=== PATIENT | male | born 1980 | race American Indian/Alaskan Native ===

== ENCOUNTER 2016-10-30 08:41 | Inpatient (IN) | payer OTHER ==
[2016-10-30] MEDS ORDERED: ATROVENT IH ONE (08:56)
[2016-10-30] MEDS ORDERED: XOPENEX IH ONE (08:56)
--- NOTE | 2016-10-30 09:10 | XRay Report ---
CHEST ONE VIEW INDICATION: Difficulty breathing. COMPARISON: 03/23/2016. FINDINGS: Portable, single, frontal chest radiograph demonstrates normal cardiomediastinal silhouette. Clear, well-expanded lungs. Unremarkable bones. Extrinsic EKG leads. CONCLUSION: No acute disease in the chest. Thank you for the opportunity to participate in this patient's care.
[2016-10-30 09:19] LABS: Basophils % (Auto) 0.8 % (0.0-1.8); Eosinophils % (Auto) 6.2 % (0.0-4.3); Hematocrit 40.8 % (35.5-45.6); Hemoglobin 13.9 gm/dl (11.8-15.2); Mean Corpuscular HGB Conc 34 % (32-34); Mean Corpuscular Hemoglobin 31 pg (28-32); Mean Corpuscular Volume 91 fl (84-94); Platelet Count 267 K/mm3 (140-440); Red Blood Count 4.47 M/mm3 (3.65-5.03); Red Cell Distribution Width 13.1 % (13.2-15.2); White Blood Count 6.9 K/mm3 (4.5-11.0)
[2016-10-30 09:37] LABS: Anion Gap 18 mmol/L; Blood Urea Nitrogen 16 mg/dL (9-20); Calcium 8.2 mg/dL (8.4-10.2); Carbon Dioxide 22 mmol/L (22-30); Chloride 102.5 mmol/L (98-107); Glucose 181 mg/dL (75-100); Potassium 3.8 mmol/L (3.6-5.0); Sodium 139 mmol/L (137-145)
--- NOTE | 2016-10-30 09:51 | Emergency Department Report ---
ED Shortness of Breath HPI - General Chief Complaint: Dyspnea/Respdistress Stated Complaint: MARCUS Time Seen by Provider: 10/30/16 08:55 Source: patient, EMS Mode of arrival: Stretcher Limitations: Other - History of Present Illness Initial Comments: 36-year-old male with a past medical history of asthma presents to the hospital complaints of shortness of breath. Patient's been short of breath asthma with cough productive of clear sputum. Patient complains of chest tightness associated with asthma. Denies nausea, vomiting, diaphoresis, or fever. History of intubation times one year ago. He is not currently on any oral steroids. Prior to arrival patient sat was 87% on room air. Patient is treated with Solu-Medrol 125 mg, magnesium 2 g, and epi 0.3 subcutaneous and CPAP support. Patient reports some improvement in his symptoms with treatment. Patient also states one week ago while at work a piece of wood fell on his left arm causing a puncture wound. Patient is unsure if he has a retained splinter. He now has purulent drainage from the site and it is hard to touch. - Related Data Previous Rx's Medication Instructions Recorded Last Taken Type Albuterol Sulfate [Ventolin HFA] 2 puff IH Q4-6H PRN #1 hfa.aer.ad 03/23/16 Unknown Rx predniSONE [Deltasone] 50 mg PO QDAY #5 tab 03/23/16 Unknown Rx Allergies Allergy/AdvReac Type Severity Reaction Status Date / Time Penicillins Allergy Shortness Verified 08/27/14 08:11 of Breath ED Review of Systems ROS: Stated complaint: MARCUS Other details as noted in HPI Comment: All other systems reviewed and negative Other: Constitutional: No fevers chills Eyes: No eye pain visual changes ENT: No ear pain or throat pain Neck: Denies pain Respiratory: as per hpi Cardiovascular:as per hpi GI: Denies abdominal pain, nausea, vomiting, diarrhea : Denies dysuria, urinary frequency, or urgency Musculoskeletal: Denies back pain, joint swelling Skin:as per hpi Neurologic: Denies headache, numbness, weakness Psychiatric: Denies suicidal ideation, hallucinations ED Past Medical Hx - Past Medical History Previous Medical History?: Yes Hx Asthma: Yes (hx of multiple intubations) - Social History Smoking Status: Former Smoker Substance Use Type: None - Medications Home Medications: Home Medications Medication Instructions Recorded Confirmed Last Taken Type Albuterol Sulfate [Ventolin HFA] 2 puff IH Q4-6H PRN #1 hfa.aer.ad 03/23/16 Unknown Rx predniSONE [Deltasone] 50 mg PO QDAY #5 tab 03/23/16 Unknown Rx ED Physical Exam - General Limitations: Other - Other Other exam information: General: No limitations, patient is alert in no acute distress Head exam: Atraumatic, normocephalic Eyes exam: Normal appearance ENT: Moist mucous membrane, normal oropharynx Neck exam: Normal inspection, full range of motion, no meningismus nontender Respiratory exam: Bilateral wheezing with accessory muscle use. CPAP support upon arrival Cardiovascular: Mild tachycardia Abdomen: Soft, nondistended, and nontender, with normal bowel sounds, no rebound, or guarding Extremity: Full range of motion normal inspection no deformity, no calf tenderness or edema Back: Normal Inspection, full range of motion, no tenderness Neurologic: Alert, oriented x3, cranial nerves intact, no motor or sensory deficit Psychiatric: normal affect, normal mood Skin: Left upper medial arm puncture wound with purulent drainage. Approximately half mL of pus expressed with residual bloody drainage. Positive induration and skin erythema localized at the puncture site ED Course Vital Signs 10/30/16 10/30/16 10/30/16 08:41 08:42 08:46 Temperature 97.5 F L Pulse Rate 110 H 94 H Respiratory 21 32 H 17 Rate Blood Pressure 145/93 139/79 O2 Sat by Pulse 97 97 Oximetry 10/30/16 10/30/16 10/30/16 08:49 09:00 09:15 Temperature Pulse Rate 76 69 Respiratory 26 H 13 17 Rate Blood Pressure 139/79 123/75 O2 Sat by Pulse 97 97 98 Oximetry 10/30/16 10/30/16 09:30 09:34 Temperature Pulse Rate 88 116 H Respiratory 12 26 H Rate Blood Pressure 123/72 145/93 O2 Sat by Pulse 97 98 Oximetry - Reevaluation(s) Reevaluation #1: 10/30/16 09:58 Further nebulized treatments with Xopenex and Atrovent given upon arrival. BiPAP support initiated upon arrival. Bactrim and tetanus also provided for left upper arm cellulitis and abscess ED Medical Decision Making - Lab Data Result diagrams: 10/30/16 09:01 10/30/16 09:01 Lab Results 10/30/16 10/30/16 Range/Units 09:01 09:01 WBC 6.9 (4.5-11.0) K/mm3 RBC 4.47 (3.65-5.03) M/mm3 Hgb 13.9 (11.8-15.2) gm/dl Hct 40.8 (35.5-45.6) % MCV 91 (84-94) fl MCH 31 (28-32) pg MCHC 34 (32-34) % RDW 13.1 L (13.2-15.2) % Plt Count 267 (140-440) K/mm3 Lymph % (Auto) 39.5 H (13.4-35.0) % [place] % (Auto) 8.7 H (0.0-7.3) % Eos % (Auto) 6.2 H (0.0-4.3) % Baso % (Auto) 0.8 (0.0-1.8) % Lymph # 2.7 (1.2-5.4) K/mm3 [place] # 0.6 (0.0-0.8) K/mm3 Eos # 0.4 (0.0-0.4) K/mm3 Baso # 0.1 (0.0-0.1) K/mm3 Seg Neutrophils % 44.8 (40.0-70.0) % Seg Neutrophils # 3.1 (1.8-7.7) K/mm3 Sodium 139 (137-145) mmol/L Potassium 3.8 (3.6-5.0) mmol/L Chloride 102.5 (98-107) mmol/L Carbon Dioxide 22 (22-30) mmol/L Anion Gap 18 mmol/L BUN 16 (9-20) mg/dL Creatinine 1.0 (0.8-1.5) mg/dL Estimated GFR > 60 ml/min BUN/Creatinine Ratio 16.00 % Glucose 181 H (75-100) mg/dL Calcium 8.2 L (8.4-10.2) mg/dL Troponin T < 0.010 (0.00-0.029) ng/mL - Radiology Data Radiology results: report reviewed (chest x-ray: No acute findings) - Medical Decision Making Plan to admit patient to the hospital for acute asthma exacerbation requiring BiPAP support. Bactrim initiated for left arm cellulitis/abscess. Tetanus provided. - Differential Diagnosis cellulitis, abscess, pneumonia, bronchitis, asthma Critical Care Time: No Critical care attestation.: If time is entered above; I have spent that time in minutes in the direct care of this critically ill patient, excluding procedure time. ED Disposition Clinical Impression: Asthma exacerbation, Abscess of left arm Disposition: OP ADMITTED IP TO THIS HOSP Is pt being admited?: Yes Condition: Stable Time of Disposition: 09:51 (Dr Lopez/hosp)
[2016-10-30] MEDS ORDERED: BOOSTRIX IM ONE (09:57)
[2016-10-30] MEDS ORDERED: BACTRIM DS PO ONE (09:57)
--- NOTE | 2016-10-30 10:13 | Admit Criteria Form ---
Admission Criteria Documentation: ASTHMA Clinical Indications for Admission to Inpatient Care (Place 'X' for any and all applicable criteria): Admission is indicated for ANY ONE of the following (1)(2)(3)(4)(5): [ ]I. Absent or markedly diminished breath sounds (silent chest) [ ]II. Oxygen saturation < 92% [ ]III. PaCO2 = / > 42 mm Hg (5.6 kPa) [ ]IV. Peak expiratory flow rate < 40% of predicted or personal best after treatment. [ ]V. Peak expiratory flow rate < 33% of predicted or personal before after treatment [ ]. Change in mental status [ ]VII. Ventilatory support required [ ]VIII. PaO2 < 60 mm Hg (8.0 kPa) [ ]IX. Cyanosis [ ]X. Cardiac dysrhythmia (e.g., bradycardia) [ ]XI. Hemodynamic instability [ ]XII. Radiographic evidence of complication requiring inpatient treatment (e.g., pneumonia, pneumothorax) [ X]XIII. Inpatient admission required rather than observation care (also use Asthma: Observation Care guideline as appropriate) because of ANY ONE of the following: [X ]a) Respiratory finding that is severe or persistent (eg, dyspnea, tachypnea, accessory muscle use) [ ]b) Airflow measurements less than 60% of predicted or personal best that persist (e.g., over 24 hours) or worsen despite treatments [ ]c) Supplemental oxygen or respiratory treatments for over 24 hours that are performable only in acute inpatient setting [ ]d) Other condition, treatment or monitoring requiring inpatient admission. Extended stay beyond goal length of stay may be needed for (26)(27)(28): [ ]a) Severe respiratory failure (23) (29) (30) [ ]b) Secondary causes and complications (25) [ ]c) Status asthmaticus [ ]d) Chronic obstructive asthma [ ]e) Older patients (29) [ ]f) Slow resolution [ ]g) Clinically significant exacerbation of comorbidities (eg, joceline. heart failure, atrial fibrillation) The original [employer] content created by [email or web address] has been revised. The portions of the content which have been revised are identified through the use of italic text or in bold, and [employer] has neither reviewed nor approved the modified material. All other unmodified content is copyright [employer] Please see references footnoted in the original [facility] edition 2016 Admission Criteria Met: Yes
[2016-10-30] MEDS ORDERED: ZOFRAN IV PRN (11:13)
[2016-10-30] MEDS ORDERED: MILK OF MAGNESIA PO PRN (11:13)
[2016-10-30] MEDS ORDERED: DULCOLAX PR PRN (11:13)
[2016-10-30] MEDS ORDERED: PROVENTIL IH PRN (11:13)
[2016-10-30] MEDS ORDERED: TYLENOL PO PRN (11:13)
--- NOTE | 2016-10-30 11:18 | History and Physical Report ---
History of Present Illness Chief complaint: Shortness of breath History of present illness: 46-year-old male with a past medical history of severe persistent asthma, he states that he has shortness of breath and cough almost every day. He supposed to be on maintenance inhalers and medications but has not been able to afford them as he does not have insurance. He now presents with 1 day of shortness of breath, wheezing and cough productive of scant clear sputum. Shortness of breath got worse and therefore he called EMS, EMS initially noted that his oxygen saturation was 87% on room air he was put on supplemental oxygen and brought to the hospital. Upon arrival in the ER he received some treatments, but however became very tachypneic and was using accessory muscles and therefore was put on noninvasive ventilator, BiPAP. Since being on BiPAP patient notes feeling better, but he still admits to shortness of breath and severe dyspnea on exertion. He denies nausea vomiting diaphoresis or fever. He has history of multiple intubations and his most recent intubation was about 1 year ago. He also notes that about a week ago a piece of wood from the ceiling fell on his arm causing a puncture wound, since then his left arm has been swollen, indurated and red tender and has been draining purulent liquid, she notes that the piece of wood that fell had irregularities and he is concerned that splinter was retained. Past History Past Medical History: other (severe persistent asthma) Past Surgical History: No surgical history Social history: smoking (former smoker) Family history: other (asthma and his grandmother and 2 uncles) Medications and Allergies Allergies Allergy/AdvReac Type Severity Reaction Status Date / Time Penicillins Allergy Shortness Verified 08/27/14 08:11 of Breath Home Medications Medication Instructions Recorded Confirmed Last Taken Type Albuterol Sulfate [Ventolin HFA] 2 puff IH Q4-6H PRN #1 hfa.aer.ad 03/23/1610/29/16 Rx Loratadine [Claritin] 10 mg PO DAILY 10/30/16 10/30/16 10/23/16 History Multivitamin Tab [Multiple Vitamin 1 each PO QDAY 10/30/16 10/30/16 10/29/16 History TAB (Theragran)] Review of Systems All systems: negative Respiratory: cough, shortness of breath, dyspnea on exertion, wheezing Musculoskeletal: other (swelling, edema and tenderness, drainage from Left medial arm) Exam - Constitutional Vitals: Temp Pulse Resp BP Pulse Ox 97.5 F L 79 17 122/70 97 10/30/16 08:42 10/30/16 10:30 10/30/16 10:30 10/30/16 10:30 10/30/16 10:30 General appearance: Present: no acute distress, well-nourished - EENT Eyes: Present: PERRL ENT: hearing intact, clear oral mucosa - Neck Neck: Present: supple, normal ROM - Respiratory Respiratory effort: normal Respiratory: bilateral: rales, wheezing - Cardiovascular Heart Sounds: Present: S1 & S2. Absent: rub, click - Extremities Extremities: pulses symmetrical, No edema Peripheral Pulses: within normal limits - Abdominal General gastrointestinal: Present: soft, non-tender, non-distended, normal bowel sounds Male genitourinary: Present: normal - Integumentary Integumentary: Present: clear, warm, dry, erythema (L medial arm, indurated, with small puncture wound, tender draining purulent fluid) - Musculoskeletal Musculoskeletal: strength equal bilaterally, other (L medial arm, indurated, with small puncture wound, tender draining purulent fluid) - Psychiatric Psychiatric: appropriate mood/affect, intact judgment & insight - Neurologic Neurologic: CNII-XII intact, moves all extremities Results - Labs CBC & Chem 7: 10/30/16 09:01 10/30/16 09:01 Labs: Laboratory Last Values WBC 6.9 K/mm3 (4.5-11.0) 10/30/16 09:01 RBC 4.47 M/mm3 (3.65-5.03) 10/30/16 09:01 Hgb 13.9 gm/dl (11.8-15.2) 10/30/16 09:01 Hct 40.8 % (35.5-45.6) 10/30/16 09:01 MCV 91 fl (84-94) 10/30/16 09:01 MCH 31 pg (28-32) 10/30/16 09:01 MCHC 34 % (32-34) 10/30/16 09:01 RDW 13.1 % (13.2-15.2) L 10/30/16 09:01 Plt Count 267 K/mm3 (140-440) 10/30/16 09:01 Lymph % (Auto) 39.5 % (13.4-35.0) H 10/30/16 09:01 [place] % (Auto) 8.7 % (0.0-7.3) H 10/30/16 09:01 Eos % (Auto) 6.2 % (0.0-4.3) H 10/30/16 09:01 Baso % (Auto) 0.8 % (0.0-1.8) 10/30/16 09:01 Lymph # 2.7 K/mm3 (1.2-5.4) 10/30/16 09:01 [place] # 0.6 K/mm3 (0.0-0.8) 10/30/16 09:01 Eos # 0.4 K/mm3 (0.0-0.4) 10/30/16 09:01 Baso # 0.1 K/mm3 (0.0-0.1) 10/30/16 09:01 Seg Neutrophils % 44.8 % (40.0-70.0) 10/30/16 09:01 Seg Neutrophils # 3.1 K/mm3 (1.8-7.7) 10/30/16 09:01 Sodium 139 mmol/L (137-145) 10/30/16 09:01 Potassium 3.8 mmol/L (3.6-5.0) 10/30/16 09:01 Chloride 102.5 mmol/L (98-107) 10/30/16 09:01 Carbon Dioxide 22 mmol/L (22-30) 10/30/16 09:01 Anion Gap 18 mmol/L 10/30/16 09:01 BUN 16 mg/dL (9-20) 10/30/16 09:01 Creatinine 1.0 mg/dL (0.8-1.5) 10/30/16 09:01 Estimated GFR > 60 ml/min 10/30/16 09:01 BUN/Creatinine Ratio 16.00 % 10/30/16 09:01 Glucose 181 mg/dL (75-100) H 10/30/16 09:01 Calcium 8.2 mg/dL (8.4-10.2) L 10/30/16 09:01 Troponin T < 0.010 ng/mL (0.00-0.029) 10/30/16 09:01 - Imaging and Cardiology Chest x-ray: image reviewed (no acute findings) Assessment and Plan Assessment and plan: 36-year-old male with a past medical history of asthma who presented with shortness of breath 1 day 1. Acute hypoxic respiratory failure Continue BiPAP and oxygen supplementation 2. Acute exacerbation of asthma IV steroids, nebulizers around the clock, respiratory therapy assess and treat 3. Cellulitis of left arm Continue antibiotics, obtain CT to look for abscess, or retained foreign body ID consult Critical care time 32 minutes Plan of care discussed with patient/family: Yes
[2016-10-30] MEDS ORDERED: BACTRIM DS ONE (11:36)
[2016-10-30] MEDS: PROVENTIL IH SCH ×2 (12:00→14:00)
[2016-10-30] MEDS: LOVENOX SUB-Q SCH (12:00)
[2016-10-30] MEDS ORDERED: NACL ONE (15:32)
--- NOTE | 2016-10-30 16:44 | Cat Scan Report ---
CT UPPER EXTREMITY LEFT WITH CONTRAST INDICATION: Right arm pain, swelling and drainage. COMPARISON: None similar. FINDINGS: Axial, sagittal and coronal CT reconstructions through the left arm suggest an oblique superficial tract like inflammation extending between the skin and muscle along the upper arm anteriorly, situated approximately 12 cm below the shoulder as on axial series 3, images 65-75. No deep focal fluid collection noted. Patent imaged major vessels. Prominent superficial veins about the wrist and the hand incidentally seen. Unremarkable bones. CONCLUSION: Small superficial fistula/sinus suspected along the left upper arm anteriorly, as detailed above. Please also correlate clinically and for provided history of right arm symptomatology. Thank you for the opportunity to participate in this patient's care.
[2016-10-30] MEDS: PULMICORT IH SCH (21:26)
[2016-10-30] MEDS: DUONEB 0.5 MG-3 MG/3 ML SOLN IH SCH (21:26)
[2016-10-30] MEDS: BROVANA NEBU IH SCH (21:28)
[2016-10-30] MEDS: BACTRIM DS PO SCH (22:44)
[2016-10-30] MEDS: SINGULAIR PO SCH (22:44)
--- NOTE | 2016-10-31 07:24 | Consultation ---
History of Present Illness - Reason for Consult Consult date: 10/31/16 BALDEV Cellulits - History of Present Illness Mr. Griffin is a 36-year-old man with a history of asthma. 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 Despite local attention to it at home, it has continued to be painful and erythematous. He presented to the ED for assessment and had cellulitis changes along the upper arm. A CT of the left arm showed no focal collection or abscess, but a fistulous tract with clinical correlation recommended. The patient feels that a foreign body is embedded that he has been unable to retrieve. ID consultation is requested for treatment of cellulitis. Past History Past Medical History: other (severe persistent asthma) Past Surgical History: No surgical history Social history: smoking (former smoker) Family history: other (asthma and his grandmother and 2 uncles) Medications and Allergies Allergies Allergy/AdvReac Type Severity Reaction Status Date / Time Penicillins Allergy Shortness Verified 08/27/14 08:11 of Breath Home Medications Medication Instructions Recorded Confirmed Last Taken Type Albuterol Sulfate [Ventolin HFA] 2 puff IH Q4-6H PRN #1 hfa.aer.ad 03/23/1610/29/16 Rx Loratadine [Claritin] 10 mg PO DAILY 10/30/16 10/30/16 10/23/16 History Multivitamin Tab [Multiple Vitamin 1 each PO QDAY 10/30/16 10/30/16 10/29/16 History TAB (Theragran)] Active Meds: Active Medications Acetaminophen (Tylenol) 650 mg PO Q4H PRN PRN Reason: Pain MILD(1-3)/Fever >100.5/[place] Albuterol (Proventil) 2.5 mg IH Q3HRT PRN PRN Reason: Shortness Of Breath Last Admin: 10/31/16 04:23 Dose: 2.5 mg Albuterol/Ipratropium (Duoneb 0.5 Mg-3 Mg/3 Ml Soln) 1 ampul IH TIDRT [facility] Last Admin: 10/30/16 21:26 Dose: 1 ampul Arformoterol Tartrate (Brovana Nebu) 15 mcg IH Q12HRT [facility] Last Admin: 10/30/16 21:28 Dose: Not Given Bisacodyl (Dulcolax) 10 mg [place] QDAY PRN PRN Reason: Constipation unrelieved by MOM Budesonide (Pulmicort) 0.5 mg IH Q12HRT [facility] Last Admin: 10/30/16 21:26 Dose: 0.5 mg Enoxaparin Sodium (Lovenox) 40 mg SUB-Q QDAY [facility] Last Admin: 10/30/16 12:00 Dose: Not Given Magnesium Hydroxide (Milk Of Magnesia) 30 ml PO Q4H PRN PRN Reason: Constipation Methylprednisolone Sodium Succinate (Solu-Medrol) 40 mg IV Q8HR [facility] Last Admin: 10/31/16 06:55 Dose: 40 mg Montelukast Sodium (Singulair) 10 mg PO QHS [facility] Last Admin: 10/30/16 22:44 Dose: 10 mg Ondansetron HCl (Zofran) 4 mg IV Q8H PRN PRN Reason: N/V unrelieved by Reglan Trimethoprim/Sulfamethoxazole (Bactrim Ds) 1 each PO Q12HR [facility] Last Admin: 10/30/16 22:44 Dose: 1 each Review of Systems All systems: negative Constitutional: no fever, no chills, no sweats Cardiovascular: no chest pain, no palpitations Respiratory: cough, shortness of breath, wheezing Gastrointestinal: no nausea, no vomiting, no diarrhea Allergic/Immunologic: no angioedema Physical Examination - Constitutional Vitals: Vital Signs Temp Pulse Resp BP Pulse Ox 97.9 F 77 20 124/70 93 10/30/16 23:49 10/31/16 04:25 10/31/16 04:25 10/30/16 23:49 10/30/16 23:49 Temperature -Last 24 Hours Temperature 97.9 F Temperature 98.1 F Temperature 98.0 F General appearance: Present: no acute distress - EENT Eyes: Absent: conjunctival injection - Neck Neck: Present: supple - Respiratory Respiratory: bilateral: wheezing, negative: rales - Cardiovascular Rhythm: regular Heart Sounds: Present: S1 & S2 - Extremities Extremities: No edema Extremity abnormal: other (a linear structure measuring ~3-4cm is palpated subcutaneously at the left anterior deltoid region, minimal surrounding erythema, no edema, no warmth) Results - Labs CBC & Chem 7: 10/30/16 09:01 10/30/16 09:01 - Imaging and Cardiology Chest x-ray: report reviewed (no acuute distress) Assessment and Plan - Patient Problems (1) Cellulitis Current Visit: Yes Status: Acute Qualifiers: Site of cellulitis: extremity Site of cellulitis of extremity: upper extremity Site of cellulitis of trunk: S Laterality: left Qualified Code(s ): L03.114 - Cellulitis of left upper limb Plan to address problem: 1. Patient has a splinter/ foreign body embedded in his arm. This will need to be removed to resolve any inflammatory/ infectious process. 2. Recommend general surgery consultation. 3. Okay to continue Bactirm for now.
[2016-10-31] MEDS: DUONEB 0.5 MG-3 MG/3 ML SOLN IH SCH ×3 (10:00→20:19)
[2016-10-31] MEDS: PULMICORT IH SCH ×2 (10:00→20:19)
[2016-10-31] MEDS: BROVANA NEBU IH SCH ×3 (10:01→20:21)
[2016-10-31] MEDS: LOVENOX SUB-Q SCH (10:28)
[2016-10-31] MEDS: BACTRIM DS PO SCH ×2 (10:29→22:17)
--- NOTE | 2016-10-31 14:17 | Progress Note ---
Assessment and Plan Assessment and plan: 36-year-old male with a past medical history of asthma who presented with shortness of breath 1 day 1. Acute hypoxic respiratory failure Continue BiPAP prn and oxygen supplementation improving 2. Acute exacerbation of asthma IV steroids, nebulizers around the clock, respiratory therapy input appreciated improving 3. Cellulitis of left arm Continue antibiotics, CT show small superficial retained foreign body ID consult pending, surgery consult to remove FB continue wound care History Interval history: sob is improved, still having drainage from wound on Right arm, still c/o retained foreign body, pain 4/10, non radiating, no fevers, no chills, Hospitalist Physical - Constitutional Vitals: Temp Pulse Resp BP Pulse Ox 98.0 F 82 16 131/73 96 10/31/16 08:15 10/31/16 10:10 10/31/16 10:10 10/31/16 08:15 10/31/16 10:00 General appearance: Present: no acute distress, well-nourished - EENT Eyes: Present: PERRL, EOM intact ENT: hearing intact, clear oral mucosa, dentition normal - Neck Neck: Present: supple, normal ROM - Respiratory Respiratory effort: normal Respiratory: bilateral: wheezing - Cardiovascular Rhythm: regular Heart Sounds: Present: S1 & S2 - Extremities Extremities: no ischemia Peripheral Pulses: within normal limits - Abdominal General gastrointestinal: soft, non-tender, non-distended, normal bowel sounds - Integumentary Integumentary: Present: clear, warm, dry - Psychiatric Psychiatric: appropriate mood/affect - Neurologic Neurologic: CNII-XII intact, no focal deficits Results - Labs CBC & Chem 7: 10/30/16 09:01 10/30/16 09:01 Labs: Laboratory Last Values WBC 6.9 K/mm3 (4.5-11.0) 10/30/16 09:01 RBC 4.47 M/mm3 (3.65-5.03) 10/30/16 09:01 Hgb 13.9 gm/dl (11.8-15.2) 10/30/16 09:01 Hct 40.8 % (35.5-45.6) 10/30/16 09:01 MCV 91 fl (84-94) 10/30/16 09:01 MCH 31 pg (28-32) 10/30/16 09:01 MCHC 34 % (32-34) 10/30/16 09:01 RDW 13.1 % (13.2-15.2) L 10/30/16 09:01 Plt Count 267 K/mm3 (140-440) 10/30/16 09:01 Lymph % (Auto) 39.5 % (13.4-35.0) H 10/30/16 09:01 [place] % (Auto) 8.7 % (0.0-7.3) H 10/30/16 09:01 Eos % (Auto) 6.2 % (0.0-4.3) H 10/30/16 09:01 Baso % (Auto) 0.8 % (0.0-1.8) 10/30/16 09:01 Lymph # 2.7 K/mm3 (1.2-5.4) 10/30/16 09:01 [place] # 0.6 K/mm3 (0.0-0.8) 10/30/16 09:01 Eos # 0.4 K/mm3 (0.0-0.4) 10/30/16 09:01 Baso # 0.1 K/mm3 (0.0-0.1) 10/30/16 09:01 Seg Neutrophils % 44.8 % (40.0-70.0) 10/30/16 09:01 Seg Neutrophils # 3.1 K/mm3 (1.8-7.7) 10/30/16 09:01 Sodium 139 mmol/L (137-145) 10/30/16 09:01 Potassium 3.8 mmol/L (3.6-5.0) 10/30/16 09:01 Chloride 102.5 mmol/L (98-107) 10/30/16 09:01 Carbon Dioxide 22 mmol/L (22-30) 10/30/16 09:01 Anion Gap 18 mmol/L 10/30/16 09:01 BUN 16 mg/dL (9-20) 10/30/16 09:01 Creatinine 1.0 mg/dL (0.8-1.5) 10/30/16 09:01 Estimated GFR > 60 ml/min 10/30/16 09:01 BUN/Creatinine Ratio 16.00 % 10/30/16 09:01 Glucose 181 mg/dL (75-100) H 10/30/16 09:01 Calcium 8.2 mg/dL (8.4-10.2) L 10/30/16 09: Troponin T < 0.010 ng/mL (0.00-0.029) 10/30/16 09:01
[2016-10-31] MEDS: SINGULAIR PO SCH (22:16)
--- NOTE | 2016-11-01 07:26 | Discharge Summary ---
Providers - Providers Date of Admission: 10/30/16 11:14 Attending physician: TESSA WALKER MD 10/30/16 14:05 Consult to Wound/ET Nurse [CONS] Routine Reason For Exam: wound eval 10/30/16 15:28 Consult to Physician [CONS] Routine Consulting Provider: SHAHAB GALLEGOS Reason For Exam: LUE cellulitis Place consult to:: christopher Notified:: cell Phone number called:: [phone] Was contact made?: Yes If yes, spoke with:: Time called:: 16:10 Comment:: left a message Primary care physician: GUEST [employer]PERIENCE SPECIALIST Hospitalization Condition: Stable Hospital course: 36-year-old male with a past medical history of asthma who presented with shortness of breath 1 day. He was found to be in acute respiratory failure, he will should a rescue BiPAP, weaned off supplemental oxygen and subsequently weaned off to room air. For the acute as well as her asthma he received steroids and nebulizer treatment and he clinically improved. He was counseled on improve compliance and given long-acting beta agonist/steroid inhaler for use at home. He was also given prescription discount card. He was found to have cellulitis of his left upper arm with a retained foreign body, which was a wooden splinter. History of antibiotics, he was seen by surgery who recommended he follow up in their clinic for removal of the splinter. He verbalized understanding next Discharge diagnoses 1. Acute hypoxic respiratory failure 2. Acute exacerbation of asthma 3. Cellulitis of left arm with retained foreign body Disposition: DC/[place] HOME UNDER HOME HEALTH Time spent for discharge: 35 minutes Core Measure Documentation - Palliative Care Palliative Care/ Comfort Measures: Not Applicable - Core Measures Any of the following diagnoses?: none Exam - Constitutional Vitals: Temp Pulse Resp BP Pulse Ox 98.2 F 98 H 18 130/75 94 10/31/16 23:00 10/31/16 23:00 10/31/16 23:00 10/31/16 23:00 10/31/16 23:00 General appearance: Present: no acute distress, well-nourished - EENT Eyes: Present: PERRL ENT: hearing intact, clear oral mucosa - Neck Neck: Present: supple, normal ROM - Respiratory Respiratory effort: normal Respiratory: bilateral: CTA - Cardiovascular Heart Sounds: Present: S1 & S2. Absent: rub, click - Extremities Extremities: pulses symmetrical, No edema, abnormal (left arm has a small wound which is draining a clear purulence fluid, area of erythema is much improved) Peripheral Pulses: within normal limits - Abdominal General gastrointestinal: Present: soft, non-tender, non-distended, normal bowel sounds Male genitourinary: Present: normal - Integumentary Integumentary: Present: clear, warm, dry - Musculoskeletal Musculoskeletal: gait normal, strength equal bilaterally - Psychiatric Psychiatric: appropriate mood/affect, intact judgment & insight - Neurologic Neurologic: CNII-XII intact, moves all extremities Plan Follow up with: PRIMARY CARE, [Primary Care Provider] - 3-5 Days Prescriptions: Montelukast [Singulair] 10 mg PO QHS #30 tablet Albuterol Sulfate [Ventolin HFA] 2 puff IH Q4-6H PRN #1 hfa.aer.ad PRN Reason: Wheezing Budesoni/Formotero 160-4.5(Nf) [Symbicort 160-4.5 (Nf)] 2 puff IH BID #1 inha Loratadine [Claritin] 10 mg PO DAILY #30 tablet Prednisone [predniSONE 10 mg (6-Day Pack, 21 Tabs)] 10 mg PO .TAPER #1 tab.ds.pk Sulfamethoxazole/Trimethoprim [Bactrim DS TAB] 1 each PO Q12HR #14 tablet
[2016-11-01] MEDS: BROVANA NEBU IH SCH (08:17)
[2016-11-01] MEDS: PULMICORT IH SCH (08:17)
[2016-11-01] MEDS: DUONEB 0.5 MG-3 MG/3 ML SOLN IH SCH ×2 (08:17→14:20)
[2016-11-01 09:26] VITALS: BP 123/76
[2016-11-01] MEDS: BACTRIM DS PO SCH (09:48)
[2016-11-01] MEDS: LOVENOX SUB-Q SCH (09:48)
[2016-11-01] MEDS ORDERED: BOOSTRIX IM ONE (16:45)
--- NOTE | 2016-11-01 16:48 | Event Note ---
Date: 11/01/16 I was consulted to see these 36 years old male because of a foreign body on the left upper arm. The patient has a splinter that side. He was having some drainage and was started on by mouth antibiotics. On examination now the area to be with no evidence of infection. There is very small amount of drainage. The patient may be discharged home on antibiotics and he needs to come to see me in the office next week to make arrangements for removal of the foreign body. In this manner the puncture wound might heal and then when we removed a splinter or foreign body we can close the wound primarily otherwise we might have to leave it open to heal by secondary intention. If he has any problems he needs to come back to the emergency room.
== END 2016-11-01 18:00 | disposition home health service (06) | DRG 189 ==
LOC: ED 08:41 → 3A 11:14
PROVIDERS: ADMIT Internal Medicine; ATTEND Internal Medicine
PROC: 5A09357 Assistance with Respiratory Ventilation, Less than 24 Consecutive Hours, Continuous Positive Airway Pressure (ICD-10-PCS; principal; 2016-10-30)
DX: J96.01 Acute respiratory failure with hypoxia (principal); J45.901 Unspecified asthma with (acute) exacerbation; L03.114 Cellulitis of left upper limb; Z87.891 Personal history of nicotine dependence; Z82.5 Family history of asthma and other chronic lower respiratory diseases; Z88.0 Allergy status to penicillin; Z71.89 Other specified counseling; M79.5 Residual foreign body in soft tissue
CPT/HCPCS: 36415; 71010; 80048; 84484; 85025; 90715; 93005; 93010; 94640; 94644; 94760; 99406; J1650; J2920; Q9967